=== PATIENT | female | born 1940 | race Caucasian/White ===

== ENCOUNTER 2016-10-12 22:29 | Emergency (ER) | payer OTHER, MEDICAID ==
[~2016-10-12] VITALS: Ht 165.1 cm; Wt 67.1 kg
[~2016-10-12 22:29] MED LIST: ASPI81CH43 PO; ATEN-60 PO; BECL0.07 PO; DICL75TA2 PO; TEMA15CA PO
[2016-10-12 22:59] VITALS: BP 144/41
[2016-10-13 00:20] LABS: Basophils # (auto) 0.2 uL; Basophils % (auto) 1.2 % (0.0-2.0); DEFINITIVE VIEW TRANSMISSION; Eosinophils # (auto) 0.4 uL; Hematocrit 39.8 % (36.0-46.0); Hemoglobin 13.2 g/dL (12.2-16.2); Lymphocytes # (auto) 2.9 uL; Lymphocytes % (auto) 20.8 % (10.0-50.0); Mean Corpuscular Hemoglobin 26.9 pg (28.0-32.0); Mean Corpuscular Hgb Conc. 33.2 g/dL (32.0-36.0); Mean Corpuscular Volume 81.2 fL (80.0-100.0); Monocytes # (auto) 0.7 uL; Monocytes % (auto) 5.3 % (0.0-12.0); Neutrophils # (auto) 9.7 uL; Neutrophils % (auto) 69.7 % (37.0-80.0); Platelet Count (auto) 290 10^3/uL (140-450); Red Cell Distribution Width 14.1 % (11.6-16.0); SUSPECT VIEW TRANSMISSION; White Blood Cell 13.9 10^3/uL (4.4-10.8)
[2016-10-13 00:22] LABS: Albumin 3.6 g/dL (3.4-5.0); Anion Gap 11 (5-15); Aspartate Aminotransferase 15 U/L (15-37); BUN/Creatinine Ratio 11.7; Blood Urea Nitrogen 19 mg/dL (7-18); Calcium 8.8 mg/dL (8.5-10.1); Carbon Dioxide 23 mmol/L (21-32); Chloride 106 mmol/L (98-107); GFR African American 40 mL/min; GFR Non-African American 33 mL/min; Glucose 105 mg/dL (74-106); Potassium 3.8 mmol/L (3.5-5.1); Sodium 140 mmol/L (136-145)
[2016-10-13 00:26] LABS: Partial Thromboplastin Time 24.7 sec (22.64-33.71); Prothrombin Time 9.6 sec (9.37-12.3)
[2016-10-13 00:27] LABS: Alkaline Phosphatase 115 U/L (45-117); Bilirubin, Total 0.3 mg/dL (0.2-1.0); Total Protein 7.6 g/dL (6.4-8.2)
[2016-10-13 00:29] LABS: B-Type Natriuretic Peptide 62.59 pg/mL (0-100)
[2016-10-13 00:31] LABS: INR 0.89 (0.9-1.15); Temperature: 23.3 C (20.0-25.0)
[2016-10-13 01:35] LABS: Urine Bilirubin Negative (Negative); Urine Blood Negative /uL (Negative); Urine Color Yellow (Yellow); Urine Glucose Normal (Normal); Urine Ketone Negative (Negative); Urine Nitrite Negative (Negative); Urine RBC <1 /hpf (0 - 4); Urine Squamous Epithelial Cell FEW /hpf (<5); Urine Urobilinogen Normal (Negative)
== END 2016-10-13 05:56 | disposition left against medical advice (07) ==
LOC: ER 22:29
DX: K92.2 Gastrointestinal hemorrhage, unspecified (principal); R19.7 Diarrhea, unspecified; Z53.21 Procedure and treatment not carried out due to patient leaving prior to being seen by health care provider
CPT/HCPCS: 36415; 80053; 81001; 83735; 83880; 84484; 85025; 85610; 85730; 93005

== ENCOUNTER 2019-10-03 13:26 | Inpatient (IN) | payer OTHER, MEDICAID ==
[~2019-10-03] VITALS: Ht 165.1 cm; Wt 66.1 kg
[2019-10-03] MEDS ORDERED: dilTIAZem 25 MG/5 ML VIAL IV ONE (13:30)
[2019-10-03] MEDS ORDERED: dilTIAZem HCL 50 MG/10 ML VIAL IV ONE (13:30)
[2019-10-03] MEDS ORDERED: dilTIAZem 125mg/125ml BAG KIT 125 ML IV ONE (13:31)
[2019-10-03] MEDS ORDERED: AMIODARONE 450mg/250ml AE 0 ML IV ONE (13:38)
[2019-10-03] MEDS: AMIODARONE 450mg/250ml AE 250 ML IV SCH ×2 (13:48→13:49)
[2019-10-03] MEDS ORDERED: AMIODARONE HCL (50 MG/ ML) 3 ML VIAL IV ONE (14:18)
[2019-10-03] MEDS ORDERED: HYDROcodone-ACET 5/325MG TAB PO PRN (15:00)
[2019-10-03] MEDS ORDERED: ALUM & MAG HYDROX-SIMETH LIQ(MAALOX) 30 ML PO PRN (15:00)
[2019-10-03] MEDS ORDERED: MORPHINE SULF INJ 2 MG/ML SYRINGE 1ML IV PRN (15:00)
[2019-10-03] MEDS ORDERED: LORazepam 0.5 MG TAB PO PRN ×2 (15:00→15:15)
[2019-10-03] MEDS ORDERED: NITROGLYCERIN 0.4 MG SL TAB SL PRN ×2 (15:00→15:15)
[2019-10-03] MEDS ORDERED: MORPHINE SULFATE 4 MG/ML SYR/VIAL IV PRN ×2 (15:00→15:15)
[2019-10-03] MEDS ORDERED: DOCUSATE SOD 100 MG CAP PO PRN (15:00)
[2019-10-03] MEDS ORDERED: ALUM & MAG HYDROX-SIMETH LIQ(MAALOX) 30 ML PO ONE (15:15)
[2019-10-03] MEDS ORDERED: ONDANSETRON HCL 4 MG/2 ML VIAL IV PRN (15:15)
[2019-10-03] MEDS ORDERED: IPRATROPIUM BROM 0.5 MG/2.5ML INH SOL NEB PRN (15:30)
[2019-10-03] MEDS ORDERED: ALBUTEROL SULF 2.5 MG/0.5ML(0.5%) NEB SOLN NEB PRN (15:30)
[2019-10-03] MEDS ORDERED: FAMOTIDINE 20 MG TAB PO ONE (15:30)
[2019-10-03 15:34] VITALS: BP 128/68
[2019-10-03 15:58] LABS: INR 1.07 (0.9-1.15); Partial Thromboplastin Time 27.1 sec (23.64-32.05)
[2019-10-03 15:59] LABS: Albumin 2.6 g/dL (3.4-5.0); Magnesium 2.2 mg/dL (1.6-2.6); Potassium 3.7 mmol/L (3.5-5.1)
[2019-10-03 16:00] LABS: Eosinophils # (auto) 0 10 ^3/uL (0-0.8); Red Cell Distribution Width 18.2 % (11.8-14.3)
[2019-10-03 16:02] LABS: Basophils # (auto) 0.1 10 ^3/uL (0-0.2); Basophils % (auto) 0.7 % (0.0-2.0); Eosinophils % (auto) 0.3 % (0.0-7.0); Hematocrit 21.5 % (36.0-46.0); Lymphocytes # (auto) 1.3 10 ^3/uL (0.4-5.4); Lymphocytes % (auto) 9.1 % (10.0-50.0); Mean Corpuscular Hemoglobin 16.7 pg (28.0-32.0); Mean Corpuscular Hgb Conc. 28.9 g/dL (32.0-36.0); Mean Corpuscular Volume 57.7 fL (80.0-100.0); Monocytes % (auto) 6.8 % (0.0-12.0); Neutrophils # (auto) 12.2 10 ^3/uL (1.6-8.6); Neutrophils % (auto) 83.1 % (37.0-80.0); Platelet Count (auto) 557 10^3/uL (140-450); Red Blood Cells 3.72 10^6/uL (4.0-5.20); White Blood Cell 14.6 10^3/uL (4.4-10.8)
[2019-10-03 16:05] LABS: BUN/Creatinine Ratio 9.3; Bilirubin, Total 0.6 mg/dL (0.2-1.0); Total Protein 6.4 g/dL (6.4-8.2)
[2019-10-03 16:21] LABS: Hemoglobin 6.2 g/dL (12.2-16.2)
[2019-10-03 17:36] LABS: Urine Bacteria NONE SEEN /hpf (None Seen); Urine Blood Negative /uL (Negative); Urine Hyaline Cast FEW /lpf (0 - 2); Urine Specific Gravity 1.013 (1.001-1.035); Urine WBC 1 /hpf (0 - 5)
[2019-10-03 19:03] VITALS: BP 133/52
[2019-10-03 19:15] VITALS: BP 135/51
[2019-10-03] MEDS ORDERED: AMIODARONE 450mg/250ml AE 250 ML IV SCH (19:47)
[2019-10-03 20:00] VITALS: BP 147/85
[2019-10-03 20:23] VITALS: BP 149/57
--- NOTE | 2019-10-03 21:00 | NUR ---
Telemetry admit from ER NGUYEN SHAY admitted to Telemetry unit after SBAR received. Patient oriented to Micaela garcia RN, unit, room, bed, and unit policies regarding patient care and visiting hours. Patient now on continuous telemetry monitoring, tele box # 60 and telemetry reading on arrival to unit is SR in the 70s. Patient placed on bedside oxygen, weighed by bedscale and encouraged to call if they need something. All questions and concerns addressed, patient verbalized understanding.
[2019-10-03 22:00] VITALS: BP 147/58
[2019-10-03] MEDS ORDERED: METOPROLOL TARTRATE 25 MG TAB PO SCH (22:00)
--- NOTE | 2019-10-03 22:00 | NUR ---
No social service consult inputted due to change in patients circumstance. Patient was currently living at at home at time of admission, but patient is currently being moved in with her son while she is in the hospital. When patient is discharged she will go home to live with her son and his family to watch out for her. Patient states that this will be much better for her and is happy with this. Patient did admit that she did not feel safe in her previous living arrangements. Social service denied due to this fact.
--- NOTE | 2019-10-03 22:05 | NUR ---
Patient states that she has restricted use of her left arm. Patient had breast cancer and surgery, patient states that doctor informed her of not using her left arm. Restricted extremity armband applied and aide notified. Will endorse to day shift RN.
[2019-10-03] MEDS: APIXABAN 2.5 MG TAB PO SCH (22:17)
[2019-10-03] MEDS ORDERED: IPRIH IN (23:34)
[2019-10-03] MEDS ORDERED: ALBU2TAB4 PO (23:34)
[2019-10-03] MEDS ORDERED: METO-169 PO (23:34)
[2019-10-03] MEDS ORDERED: HYDR-3682 PO (23:34)
[2019-10-03] MEDS ORDERED: LEVO25TA49 PO (23:34)
[2019-10-03] MEDS ORDERED: APIX2.5T PO (23:34)
[2019-10-04] VITALS (7 sets, daily range): BP systolic 102–166; BP diastolic 58–108
--- NOTE | 2019-10-04 01:45 | NUR ---
Patient stated that she was coughing more which was hurting her throat. Respiratory paged for PRN breathing treatment to help with her coughing and SOB.
--- NOTE | 2019-10-04 06:03 | NUR ---
Respiratory note: PT ASSESSED FOR PRN TX. HR 73, RR 16, POX 98% ON 2L NC, BREATH BS ARE CLEAR/DIMINISHED. NO SOB OR DISTRESS NOTED AT THIS TIME. PT WAS NOTIFY TO HAVE RT PAGE FRO NEEDED TX.
[2019-10-04] MEDS: LEVOTHYROXINE SODIUM 25 MCG TAB PO SCH (06:14)
[2019-10-04 06:46] LABS: Basophils # (auto) 0.1 10 ^3/uL (0-0.2); Eosinophils # (auto) 0.2 10 ^3/uL (0-0.8); Hematocrit 23.5 % (36.0-46.0); Hemoglobin 7.3 g/dL (12.2-16.2); Mean Corpuscular Hemoglobin 19.1 pg (28.0-32.0)
[2019-10-04 06:48] LABS: Eosinophils % (auto) 1.5 % (0.0-7.0); Lymphocytes # (auto) 1.8 10 ^3/uL (0.4-5.4); Lymphocytes % (auto) 14.1 % (10.0-50.0); Mean Corpuscular Hgb Conc. 30.8 g/dL (32.0-36.0); Mean Corpuscular Volume 61.9 fL (80.0-100.0); Monocytes # (auto) 1.1 10 ^3/uL (0-1.3); Monocytes % (auto) 8.7 % (0.0-12.0); Neutrophils # (auto) 9.5 10 ^3/uL (1.6-8.6); Neutrophils % (auto) 74.7 % (37.0-80.0); Nucleated Red Blood Cells % 0.1 %; Platelet Count (auto) 508 10^3/uL (140-450); White Blood Cell 12.7 10^3/uL (4.4-10.8)
[2019-10-04 06:51] LABS: Red Cell Distribution Width 22.7 % (11.8-14.3)
[2019-10-04 07:00] LABS: INR 1.05 (0.9-1.15); Partial Thromboplastin Time 26.9 sec (23.64-32.05)
[2019-10-04 07:01] LABS: Magnesium 2.2 mg/dL (1.6-2.6); Potassium 3.9 mmol/L (3.5-5.1)
[2019-10-04 07:09] LABS: Albumin 2.6 g/dL (3.4-5.0); BUN/Creatinine Ratio 10.8; Bilirubin, Total 0.8 mg/dL (0.2-1.0); Calcium 8.1 mg/dL (8.5-10.1); Phosphorus 3.1 mg/dL (2.5-4.90); Total Protein 6.2 g/dL (6.4-8.2)
--- NOTE | 2019-10-04 07:51 | NUR ---
OPENING SHIFT NOTE Assumed care of patient. PT is awake and alert. No S/S of distress/SOB. BED IN LOWEST, LOCKED POSITION WITH SIDERAILS UP x2 AND CALL LIGHT WITHIN REACH. Instructed on POC and to call for assist PRN, will continue to monitor for changes Q1hr and PRN.
[2019-10-04] MEDS: DOCUSATE SOD 100 MG CAP PO SCH (10:00)
[2019-10-04] MEDS ORDERED: ASPirin 81 mg TAB PO SCH ×2 (10:00)
[2019-10-04] MEDS ORDERED: ATENOLOL 25 MG TAB PO SCH (10:00)
[2019-10-04] MEDS: APIXABAN 2.5 MG TAB PO SCH (10:00)
[2019-10-04] MEDS ORDERED: FUROSEMIDE 100 MG/10ML VIAL IV ONE (15:45)
[2019-10-04] MEDS: METOPROLOL TARTRATE 25 MG TAB PO SCH ×2 (17:50→18:26)
--- NOTE | 2019-10-04 18:23 | NUR ---
PT ASSESSED FOR PRN TX. PT IS EATING DINNER WITH NO ACUTE RESP DISTRESS NOTED. PRN TX IS NOT INDICATED. HR 69 RR 20 POX 96% ON 2LPM VIA NC. B/S DECREASED. WILL CONTINUE TO MONITOR.
--- NOTE | 2019-10-04 19:00 | NUR ---
Opening Shift Note Assumed care of patient, awake and alert. No S/S of pain, patient complains of wheezing, upon auscultation breath sounds sound normal, patient seems out of breath, O2 sat normal- 98%, will call respiratory and continue to monitor patient. Instructed on POC and to call for assist PRN, will continue to monitor for changes Q1hr and PRN. Patient in the lowest possible position with bed rails up x2 and call light within reach.
--- NOTE | 2019-10-04 20:30 | NUR ---
Stool sample obtained and sent to lab.
[2019-10-04] MEDS: PANTOPRAZOLE 40 MG TAB PO SCH (21:29)
[2019-10-04] MEDS ORDERED: FAMOTIDINE 20 MG TAB PO SCH (22:00)
[2019-10-04] MEDS ORDERED: PANTOPRAZOLE 40 MG/10 ML VIAL INJ IV SCH (22:00)
[2019-10-05] MEDS: METOPROLOL TARTRATE 25 MG TAB PO SCH ×2 (01:59→09:12)
[2019-10-05 05:00] VITALS: BP 115/64
[2019-10-05 06:22] LABS: Hematocrit 23.8 % (36.0-46.0); Hemoglobin 7.3 g/dL (12.2-16.2)
[2019-10-05 06:38] LABS: BUN/Creatinine Ratio 10.9; Calcium 8.2 mg/dL (8.5-10.1); Potassium 3.8 mmol/L (3.5-5.1)
--- NOTE | 2019-10-05 06:49 | NUR ---
Closing shift Patient in lowest possible position with bed rails up x2 and call light within reach. Will endorse to day shift RN Summer.
[2019-10-05 06:55] LABS: INR 1.04 (0.9-1.15); Partial Thromboplastin Time 28.9 sec (23.64-32.05)
[2019-10-05] MEDS: LEVOTHYROXINE SODIUM 25 MCG TAB PO SCH (07:00)
--- NOTE | 2019-10-05 07:14 | NUR ---
Respiratory note: PT AWAKE, AND ALERT. NO RESPIRATORY DISTRESS NOTED. SPO2 97% ON 2L NC, HR 65, RR 17, BS CLEAR BILATERALLY. PRN MEDNEB TX NOT INDICATED. PT INFORMED TO PUSH CALL BUTTON IF INCREASE WOB, SOB, OR WHEEZING OCCURS.
--- NOTE | 2019-10-05 07:35 | NUR ---
Opening Note Received report from casino shift manager RN. Patient is awake, alert and oriented x4. No signs or symptoms of distress noted at this time. Patient is on 2L NC, respirations even and unlabored. Patient denies pain at this time. Reviewed plan of care with patient, patient verbalized understanding. Bed in low and locked position, call light within reach. Will continue to monitor Q1 and PRN.
[2019-10-05 08:00] VITALS: BP 119/65
[2019-10-05 09:00] VITALS: BP 119/65
[2019-10-05] MEDS: PANTOPRAZOLE 40 MG TAB PO SCH (09:11)
[2019-10-05] MEDS: DOCUSATE SOD 100 MG CAP PO SCH (09:13)
[2019-10-05] MEDS ORDERED: METO-169 PO (10:55)
[2019-10-05] MEDS ORDERED: PANT40T PO (10:55)
[2019-10-05] MEDS ORDERED: FERR-7 PO (10:55)
[2019-10-05] MEDS ORDERED: IRON SUCROSE COMPLEX 200 MG in SODIUM CHL 0.9% 100 ML IV SCH (12:00)
[2019-10-05 12:01] VITALS: BP 119/65
[2019-10-05 13:00] VITALS: BP 121/67
--- NOTE | 2019-10-05 13:00 | NUR ---
Knox catheter removed Order to discontinue Knox catheter. Knox removed with clean technique following deflation of balloon. Patient tolerated well with no complaints of pain. Will continue to monitor Q1 hour and PRN.
--- NOTE | 2019-10-05 15:14 | NUR ---
Discharge Discharge instructions given as ordered. Encourage to follow up with PMD as instructed. All questions and concerns addressed. Patient verbalized understanding. Medication reconciliation form completed and copy given to patient. Home medications held in Pharmacy returned to patient. IV removed with catheter intact, pressure dressing applied. Telemetry unit returned to ICU. Patient taken to vehicle via wheelchair with all personal belongings, accompanied by staff with all personal belongings. No signs or symptoms of distress noted at time.
== END 2019-10-05 16:00 | disposition home or self-care (01) | DRG 309 ==
LOC: EDBD 13:26 → ER 13:26 → TELE 13:27 → TELE-WESTW 20:35
PROVIDERS: ADMIT Hospitalist; ATTEND Hospitalist
PROC: 30233N1 Transfusion of Nonautologous Red Blood Cells into Peripheral Vein, Percutaneous Approach (ICD-10-PCS; principal; 2019-10-03)
DX: I47.1 Supraventricular tachycardia (principal); E44.0 Moderate protein-calorie malnutrition; I24.8 Other forms of acute ischemic heart disease; N18.9 Chronic kidney disease, unspecified; J44.9 Chronic obstructive pulmonary disease, unspecified; D64.9 Anemia, unspecified; E11.22 Type 2 diabetes mellitus with diabetic chronic kidney disease; I12.9 Hypertensive chronic kidney disease with stage 1 through stage 4 chronic kidney disease, or unspecified chronic kidney disease; E03.9 Hypothyroidism, unspecified; Z86.718 Personal history of other venous thrombosis and embolism; Z87.891 Personal history of nicotine dependence; Z85.3 Personal history of malignant neoplasm of breast; I25.10 Atherosclerotic heart disease of native coronary artery without angina pectoris; I48.91 Unspecified atrial fibrillation; Z87.11 Personal history of peptic ulcer disease; Z68.26 Body mass index [BMI] 26.0-26.9, adult
CPT/HCPCS: 36415; 36556; 71045; 80048; 80053; 80061; 81001; 82270; 83036; 83735; 83880; 84100; 84443; 84484; 85014; 85018; 85025; 85610; 85730; 86850; 86900; 86901; 86920; 93005; 99291; G0378; J1756

== ENCOUNTER 2020-03-28 23:56 | Emergency (ER) | payer OTHER, MEDICAID ==
[~2020-03-28] VITALS: Ht 162.6 cm; Wt 68.0 kg
[~2020-03-28 23:56] MED LIST changes: +ALBU2TAB4 PO; -ATEN-60 PO; -DICL75TA2 PO; +FERR-7 PO; +HYDR-3682 PO; +IPRIH IN; +LEVO25TA49 PO; +METO-169 PO; +PANT40T PO
[2020-03-29] MEDS ORDERED: cloNIDine HCL 0.1 MG TAB PO ONE (00:15)
[2020-03-29] MEDS ORDERED: ONDANSETRON HCL 4 MG/2 ML VIAL IV ONE ×2 (01:30→03:15)
[2020-03-29] MEDS ORDERED: MORPHINE SULFATE 4 MG/ML SYR/VIAL IV ONE (01:30)
[2020-03-29] MEDS ORDERED: HYDROmorphone HCL 2 MG/ML VL IM ONE (03:15)
[2020-03-29 03:30] VITALS: BP 152/68
== END 2020-03-29 04:20 | disposition home or self-care (01) ==
LOC: EDBD 23:56 → ER 23:56
DX: S52.531A Colles' fracture of right radius, initial encounter for closed fracture (principal); I48.91 Unspecified atrial fibrillation; J44.9 Chronic obstructive pulmonary disease, unspecified; E11.9 Type 2 diabetes mellitus without complications; I10 Essential (primary) hypertension; W19.XXXA Unspecified fall, initial encounter; Y93.89 Activity, other specified; Y92.89 Other specified places as the place of occurrence of the external cause; Y99.8 Other external cause status
CPT/HCPCS: 29125; 73110; 96372; 96374; 96375; 96376; 99284; J1170; J2270; J2405

== ENCOUNTER 2022-06-19 18:08 | Inpatient (IN) | payer OTHER, MEDICAID ==
[~2022-06-19] VITALS: Ht 162.6 cm; Wt 63.4 kg
[~2022-06-19 18:08] MED LIST changes: -METO-169 PO; +METO-289 PO
[2022-06-19] MEDS ORDERED: dilTIAZem 25 MG/5 ML VIAL IV ONE (19:00)
[2022-06-19 19:59] LABS: Basophils # (auto) 0.1 10 ^3/uL (0-0.2); Eosinophils # (auto) 0 10 ^3/uL (0-0.8); Eosinophils % (auto) 0.1 % (0.0-7.0); Mean Corpuscular Hemoglobin 22.3 pg (28.0-32.0); Monocytes # (auto) 0.8 10 ^3/uL (0-1.3); Red Blood Cells 4.37 10^6/uL (4.0-5.20)
[2022-06-19 20:00] LABS: Basophils % (auto) 0.8 % (0.0-2.0); Hematocrit 31.5 % (36.0-46.0); Hemoglobin 9.7 g/dL (12.2-16.2); Lymphocytes # (auto) 0.9 10 ^3/uL (0.4-5.4); Lymphocytes % (auto) 7.3 % (10.0-50.0); Mean Corpuscular Hgb Conc. 30.9 g/dL (32.0-36.0); Monocytes % (auto) 6.9 % (0.0-12.0); Neutrophils # (auto) 9.9 10 ^3/uL (1.6-8.6); Neutrophils % (auto) 84.9 % (37.0-80.0); Red Cell Distribution Width 17.5 % (11.8-14.3); White Blood Cell 11.7 10^3/uL (4.4-10.8)
[2022-06-19 20:10] LABS: INR 1.07 (0.9-1.15); Partial Thromboplastin Time 25.9 sec (24.6-33.4)
[2022-06-19 20:15] LABS: Albumin 2.7 g/dL (3.4-5.0); Calcium 8.3 mg/dL (8.5-10.1); Potassium 4.7 mmol/L (3.5-5.1)
[2022-06-19 20:16] LABS: BUN/Creatinine Ratio 19.1
[2022-06-19 20:19] LABS: Bilirubin, Total 1.4 mg/dL (0.2-1.0); Total Protein 6.5 g/dL (6.4-8.2)
[2022-06-19 22:11] LABS: Urine Bacteria FEW /hpf (None Seen); Urine Blood 3+ /uL (Negative); Urine Specific Gravity 1.012 (1.001-1.035); Urine WBC 29 /hpf (0 - 5)
[2022-06-19] MEDS ORDERED: HYDROcodone-ACET 5/325MG TAB PO PRN (23:45)
[2022-06-19] MEDS ORDERED: ACETAMINOPHEN 325 MG TAB PO PRN (23:45)
[2022-06-19] MEDS ORDERED: ALBUTEROL SULF 2 MG/5ML ORAL SYRUP PO PRN (23:45)
[2022-06-19] MEDS ORDERED: NITROGLYCERIN 0.4 MG SL TAB SL PRN (23:45)
[2022-06-19] MEDS ORDERED: DOCUSATE SOD 100 MG CAP PO PRN (23:45)
[2022-06-19] MEDS ORDERED: MORPHINE SULFATE INJ 2 MG/ml SYRG IV PRN (23:45)
[2022-06-19] MEDS ORDERED: ONDANSETRON HCL 4 MG/2 ML VIAL IV PRN (23:45)
[2022-06-20] MEDS ORDERED: TEMAZEPAM 15 MG CAP PO ONE (00:15)
[2022-06-20] MEDS ORDERED: METOPROLOL TARTRATE 50 MG TAB PO ONE (01:00)
[2022-06-20 01:10] VITALS: BP 145/93
[2022-06-20 06:19] LABS: Basophils # (auto) 0.1 10 ^3/uL (0-0.2); Eosinophils # (auto) 0.1 10 ^3/uL (0-0.8); Eosinophils % (auto) 0.7 % (0.0-7.0); Hematocrit 26.6 % (36.0-46.0); Hemoglobin 8.3 g/dL (12.2-16.2); Lymphocytes # (auto) 2.2 10 ^3/uL (0.4-5.4); Lymphocytes % (auto) 23.7 % (10.0-50.0); Mean Corpuscular Hemoglobin 22.5 pg (28.0-32.0); Mean Corpuscular Hgb Conc. 31.3 g/dL (32.0-36.0); Mean Corpuscular Volume 71.9 fL (80.0-100.0); Monocytes # (auto) 1.1 10 ^3/uL (0-1.3); Monocytes % (auto) 12.3 % (0.0-12.0); Neutrophils # (auto) 5.8 10 ^3/uL (1.6-8.6); Neutrophils % (auto) 62.3 % (37.0-80.0); Nucleated Red Blood Cells % 0.1 %; Red Blood Cells 3.69 10^6/uL (4.0-5.20); Red Cell Distribution Width 17.8 % (11.8-14.3); White Blood Cell 9.3 10^3/uL (4.4-10.8)
[2022-06-20 06:29] LABS: Albumin 2.4 g/dL (3.4-5.0); Anion Gap 8 (5-15); Blood Urea Nitrogen 30 mg/dL (7-18); Calcium 7.9 mg/dL (8.5-10.1); Carbon Dioxide 26 mmol/L (21-32); Chloride 104 mmol/L (98-107); Glucose 88 mg/dL (74-106); Potassium 3.9 mmol/L (3.5-5.1); Sodium 138 mmol/L (136-145)
[2022-06-20 06:32] LABS: Alanine Aminotransferase 15 U/L (13-56); Alkaline Phosphatase 124 U/L (45-117); Aspartate Aminotransferase < 3 U/L (15-37); BUN/Creatinine Ratio 23.1; GFR African American 50 mL/min; GFR Non-African American 41 mL/min; Total Protein 6.1 g/dL (6.4-8.2)
[2022-06-20] MEDS ORDERED: IPRATROPIUM BROM 0.5 MG/2.5ML INH SOL NEB PRN (07:00)
[2022-06-20] MEDS ORDERED: IPRATROPIUM BROMIDE HFA AER IN SCH (10:00)
[2022-06-20] MEDS ORDERED: METOPROLOL SUCCINATE XL 50 MG TAB PO SCH (10:00)
[2022-06-20] MEDS ORDERED: METOPROLOL TARTRATE 25 MG TAB PO SCH ×2 (10:00→22:00)
[2022-06-20] MEDS: PANTOPRAZOLE 40 MG/10 ML VIAL INJ IV SCH (10:52)
[2022-06-20] MEDS: LEVOTHYROXINE SODIUM 25 MCG TAB PO SCH (10:53)
[2022-06-20] MEDS ORDERED: METOPROLOL TARTRATE 1MG/1ML-5ML VIAL IV PRN (12:30)
[2022-06-20] MEDS ORDERED: DIGOXIN (250MCG/ML) 2 ML AMPULE IV PRN (15:15)
[2022-06-20] MEDS: METOPROLOL TARTRATE 1MG/1ML-5ML VIAL IV PRN (20:00)
[2022-06-20] MEDS: TEMAZEPAM 15 MG CAP PO SCH (21:59)
[2022-06-21] MEDS: METOPROLOL TARTRATE 1MG/1ML-5ML VIAL IV PRN ×3 (09:01→19:13)
[2022-06-21] MEDS: PANTOPRAZOLE 40 MG/10 ML VIAL INJ IV SCH (09:39)
[2022-06-21] MEDS: METOPROLOL TARTRATE 25 MG TAB PO SCH ×2 (09:39→21:35)
[2022-06-21] MEDS: LEVOTHYROXINE SODIUM 25 MCG TAB PO SCH (09:39)
[2022-06-21 10:05] VITALS: BP 143/81
[2022-06-21 11:21] LABS: Eosinophils # (auto) 0.3 10 ^3/uL (0-0.8); Monocytes # (auto) 0.8 10 ^3/uL (0-1.3)
[2022-06-21 11:22] LABS: Basophils # (auto) 0.1 10 ^3/uL (0-0.2); Basophils % (auto) 1.2 % (0.0-2.0); Eosinophils % (auto) 2.5 % (0.0-7.0); Hemoglobin 9.4 g/dL (12.2-16.2); Lymphocytes # (auto) 1.7 10 ^3/uL (0.4-5.4); Lymphocytes % (auto) 15.1 % (10.0-50.0); Mean Corpuscular Hemoglobin 22.5 pg (28.0-32.0); Mean Corpuscular Hgb Conc. 31.4 g/dL (32.0-36.0); Mean Corpuscular Volume 71.5 fL (80.0-100.0); Monocytes % (auto) 7.3 % (0.0-12.0); Neutrophils # (auto) 8.2 10 ^3/uL (1.6-8.6); Neutrophils % (auto) 73.9 % (37.0-80.0); Nucleated Red Blood Cells % 0.1 %; Red Cell Distribution Width 17.9 % (11.8-14.3)
[2022-06-21 11:34] LABS: Albumin 2.8 g/dL (3.4-5.0); BUN/Creatinine Ratio 18.8; Calcium 8.5 mg/dL (8.5-10.1); Potassium 4.1 mmol/L (3.5-5.1)
[2022-06-21 11:37] LABS: Bilirubin, Total 0.8 mg/dL (0.2-1.0); Total Protein 6.6 g/dL (6.4-8.2)
[2022-06-21 13:09] VITALS: BP 143/81
[2022-06-21] MEDS ORDERED: ALEN70TA74 PO (13:39)
[2022-06-21] MEDS ORDERED: LISI20TA28 PO (13:39)
[2022-06-21] MEDS ORDERED: HYDR10TA26 PO (13:39)
[2022-06-21] MEDS ORDERED: PRAV20TA3 PO (13:39)
[2022-06-21 17:00] VITALS: BP 148/96
[2022-06-21 20:00] VITALS: BP 146/59
[2022-06-21] MEDS: TEMAZEPAM 15 MG CAP PO SCH (21:35)
[2022-06-21 22:00] VITALS: BP 146/59
[2022-06-22 05:00] VITALS: BP 146/65
[2022-06-22 08:15] VITALS: BP 173/107
[2022-06-22] MEDS: PANTOPRAZOLE 40 MG/10 ML VIAL INJ IV SCH (09:34)
[2022-06-22] MEDS: LEVOTHYROXINE SODIUM 25 MCG TAB PO SCH (09:34)
[2022-06-22] MEDS: METOPROLOL TARTRATE 25 MG TAB PO SCH (09:35)
[2022-06-22] MEDS ORDERED: FERROUS SULFATE 325mg EC TAB PO SCH (10:00)
[2022-06-22 11:50] VITALS: BP 128/73
[2022-06-22] MEDS ORDERED: MET25T PO (12:20)
[2022-06-22 12:42] VITALS: BP 139/62
== END 2022-06-22 13:30 | disposition home or self-care (01) | DRG 150 ==
LOC: ER 18:08 → EDUNIT# 18:08 → EDBD 18:08 → TELE 23:34 → TELE-WESTW 06-21 10:01
PROVIDERS: ADMIT Nurse Practitioner Family; ATTEND Internal Medicine
PROC: 2Y41X5Z Packing of Nasal Region using Packing Material (ICD-10-PCS; principal; 2022-06-20)
DX: R04.0 Epistaxis (principal); I50.23 Acute on chronic systolic (congestive) heart failure; I48.20 Chronic atrial fibrillation, unspecified; I48.91 Unspecified atrial fibrillation; D64.9 Anemia, unspecified; E03.9 Hypothyroidism, unspecified; I10 Essential (primary) hypertension; J44.9 Chronic obstructive pulmonary disease, unspecified; Z87.891 Personal history of nicotine dependence; Z20.822 Contact with and (suspected) exposure to COVID-19; I11.0 Hypertensive heart disease with heart failure
CPT/HCPCS: 36415; 71045; 80053; 81001; 83880; 84443; 84484; 85025; 85610; 85730; 87426; 93005; 93306; 96374; 96375; 99291; C9113; G0378

== ENCOUNTER 2022-06-30 13:56 | Emergency (ER) | payer OTHER, MEDICAID ==
[~2022-06-30] VITALS: Ht 162.6 cm; Wt 65.0 kg
[~2022-06-30 13:56] MED LIST changes: +ALEN70TA74 PO; +HYDR10TA26 PO; +LISI20TA28 PO; +MET25T PO; -METO-289 PO; +PRAV20TA3 PO
[2022-06-30 14:39] LABS: Monocytes # (auto) 1.3 10 ^3/uL (0-1.3); Nucleated Red Blood Cells % 0.2 %; Red Cell Distribution Width 17.4 % (11.8-14.3)
[2022-06-30 14:40] LABS: Basophils # (auto) 0.1 10 ^3/uL (0-0.2); Eosinophils # (auto) 0 10 ^3/uL (0-0.8); Eosinophils % (auto) 0.3 % (0.0-7.0); Hematocrit 28.8 % (36.0-46.0); Hemoglobin 8.6 g/dL (12.2-16.2); Lymphocytes # (auto) 1.1 10 ^3/uL (0.4-5.4); Lymphocytes % (auto) 8.9 % (10.0-50.0); Mean Corpuscular Hemoglobin 20.9 pg (28.0-32.0); Mean Corpuscular Volume 69.8 fL (80.0-100.0); Monocytes % (auto) 9.9 % (0.0-12.0); Neutrophils # (auto) 10.3 10 ^3/uL (1.6-8.6); Neutrophils % (auto) 79.9 % (37.0-80.0); Red Blood Cells 4.13 10^6/uL (4.0-5.20); White Blood Cell 12.8 10^3/uL (4.4-10.8)
[2022-06-30 14:52] LABS: Calcium 8.5 mg/dL (8.5-10.1); Potassium 4.8 mmol/L (3.5-5.1)
[2022-06-30 14:55] LABS: BUN/Creatinine Ratio 13.6; Bilirubin, Total 1.2 mg/dL (0.2-1.0); Total Protein 6.6 g/dL (6.4-8.2)
[2022-06-30 15:20] LABS: INR 1.08 (0.9-1.15); Partial Thromboplastin Time 24.2 sec (24.6-33.4)
[2022-06-30] MEDS ORDERED: CEPHALEXIN 250 MG CAP PO ONE (20:00)
[2022-06-30] MEDS ORDERED: CEPH-322 PO (20:01)
[2022-06-30 20:15] VITALS: BP 137/87
== END 2022-06-30 20:22 | disposition home or self-care (01) ==
LOC: ER 13:56
DX: S01.01XA Laceration without foreign body of scalp, initial encounter (principal); I11.0 Hypertensive heart disease with heart failure; I50.9 Heart failure, unspecified; J44.9 Chronic obstructive pulmonary disease, unspecified; M25.512 Pain in left shoulder; Z20.822 Contact with and (suspected) exposure to COVID-19; W05.0XXA Fall from non-moving wheelchair, initial encounter; Y93.89 Activity, other specified; Y92.89 Other specified places as the place of occurrence of the external cause; Y99.8 Other external cause status
CPT/HCPCS: 12001; 36415; 70450; 71250; 72125; 74176; 80053; 84484; 85025; 85610; 85730; 87426; 93005